=== PATIENT | male | born 2000 | race Caucasian/White ===

== ENCOUNTER 2021-01-28 16:32 | Emergency (ER) | payer OTHER, SELFPAY ==
[2021-01-28 16:46] VITALS: BP 107/76; PULSE 99; RESP 16; TEMP 36; O2SAT 99
--- NOTE | 2021-01-28 17:27 | ED.MALEGU ---
HPI - Male Genitourinary General Chief complaint: Urogenital-Male Stated complaint: uti Time Seen by Provider: 01/28/21 17:27 Source: patient, RN notes reviewed and old records reviewed Mode of arrival: ambulatory Limitations: no limitations History of Present Illness HPI Narrative: 20 year old male who presents to [facility] care with 4 day history of bilateral flank pain,burning with urination, urinary frequency and some visible hematuria. Patient denies any known history of previous kidney stones or urinary tract infections.He denies any penile discharge or any penile lesions or any concern for exposure to STD's. Patient states his bilateral flank pain as 3/10 describes pain as aching. He denies any known fevers, chills or sweats, no nausea vomiting or diarrhea. MD Complaint: dysuria Related Data Allergies Allergy/AdvReac Type Severity Reaction Status Date / Time pollen extracts Allergy Mild Verified 01/28/21 16:56 Dust Allergy Mild Uncoded 01/28/21 16:56 Review of Systems Review of Systems: CONSTITUTIONAL: Denies fever, chills, or sweats. EYES: Denies visual changes, redness, or discharge. ENT: Denies rhinorrhea, congestion, sore throat, or otalgia. CARDIOVASCULAR: Denies chest pain, palpitations, or edema. RESPIRATORY: Denies cough or dyspnea. GASTROINTESTINAL: Denies abdominal pain, nausea, vomiting, or diarrhea. GENITOURINARY: Positive dysuria or hematuria. SKIN: Denies rash or itching. MUSCULOSKELETAL: Denies back pain, joint pain, or myalgia.bilateral CVA tenderness reported. NEUROLOGIC: Denies headache, numbness, or weakness. PSYCHIATRIC: Denies anxiety or depression. All systems reviewed & are unremarkable except as noted in HPI and below PMFSH Past Medical History Medical History (Updated 02/03/21 @ 22:28 by Lucero Victoria NP) Asthma Facial fracture Fracture of left forearm Fracture of right lower extremity Fracture of right upper extremity Fracture of right wrist Heel fracture left Surgical History Surgical History (Updated 02/03/21 @ 22:29 by Lucero Victoria NP) History of placement of ear tubes S/P excision of varicocele Family History Family History (Updated 02/03/21 @ 22:32 by Lucero Victoria NP) Father Hypertension Social History Social History (Updated 09/17/21 @ 22:29 by Lucero Victoria NP) Tobacco type: e-cigarettes/vaping Alcohol intake: current Alcohol use details: social Substance use: never Living arrangements: with family Gender identity (if verbalized by the patient): Male Comments At time of signature, agree with nursing past medical, surgical, social and family history. There is no relevant family history pertinent to the presenting complaint Exam Narrative: GENERAL: Well-appearing, well-nourished, and in no acute distress. HEAD: Normocephalic, atraumatic. EYES: PERRLA and EOMI. ENT: Nares clear, no rhinorrhea or epistaxis. Mucous membranes moist.TM's normal, throat pink with no lesions or exudates, no tonsil swelling. NECK: Supple. No lymphadenopathy CHEST: Clear to auscultation. No respiratory distress. SaO2 99% on room air HEART: Regular rate and rhythm. No murmur heard. Normal peripheral pulses. ABDOMEN: Soft, nontender to palpation nondistended, normal active bowel sounds. positive for bilateral CVA tenderness EXTREMITIES: Normal range of motion. No edema. SKIN: Warm, dry, no rash. NEURO: No focal deficits. Alert and oriented x3. Course Vital Signs Vital signs: Vital Signs Temperature 36.0 C L 01/28/21 16:46 Pulse Rate 99 01/28/21 16:46 Respiratory Rate 16 01/28/21 16:46 Blood Pressure 107/76 01/28/21 16:46 Pulse Oximetry 99 01/28/21 16:46 Temperature 36.0 C L 01/28/21 16:46 Pulse Rate 99 01/28/21 16:46 Respiratory Rate 16 01/28/21 16:46 Blood Pressure 107/76 01/28/21 16:46 Pulse Oximetry 99 01/28/21 16:46 MDM - Male Genitourinary MDM Narrative Medical decision making narrative: Patient in
--- NOTE | 2021-01-28 18:12 | PC.NURSE ---
[facility] closed, called into [facility] - spoke with
== END 2021-01-28 17:48 | disposition home or self-care (01) ==
PROVIDERS: Emergency Provider Registered Nurse
DX: N39.0 Urinary tract infection, site not specified (principal); F17.290 Nicotine dependence, other tobacco product, uncomplicated
CPT/HCPCS: 81003; 87086; 99213; G0463

== ENCOUNTER 2021-02-21 08:27 | Outpatient (CLI) | payer OTHER, SELFPAY ==
--- NOTE | ~2021-02-21 | MR_ITS ---
EXAMINATION: MR knee LT wo con DATE: 02/21/2021 10:06 INDICATION: Left knee pain and stiffness post injury one month prior TECHNIQUE: Magnetic resonance imaging (MRI) of the left knee was performed without intravenous contra st. Sequences included coronal PD-weighted FSE, coronal PD-weighted FS FSE, sagittal T2-weighted FSE , sagittal PD-weighted FS FSE and axial PD weighted fat saturated FSE. COMPARISON: None. FINDINGS: Medial compartment: Medial meniscus is normal. Articular cartilage is normal. Lateral compartment: Lateral meniscus is normal. Articular cartilage is normal. Patellofemoral compartment: Articular cartilage is normal. Ligaments and tendons: Anterior and posterior cruciate ligaments are normal. The medial collateral ligament and fibular nida ateral ligament complex are normal. The extensor mechanism is normal. The visualized medial and later al hamstring tendons as well as the iliotibial band are normal. Fluid: Physiologic amount of fluid in the joint space. No loose osteochondral bodies identified. Osseous/other: Normal marrow signal. No fracture or pathologic marrow replacing process. IMPRESSION: 1. Normal left knee MRI. Reviewed, dictated and finalized at location B. IMPRESSION: 1. Normal left knee MRI.
== END 2021-02-21 08:28 | disposition home or self-care (01) ==
PROVIDERS: PCP Nurse Practitioner Family; Visit Provider Nurse Practitioner Family
DX: M25.562 Pain in left knee (principal); G89.29 Other chronic pain; S89.92XA Unspecified injury of left lower leg, initial encounter; X58.XXXA Exposure to other specified factors, initial encounter
CPT/HCPCS: 73721

== ENCOUNTER 2022-04-18 06:18 | Emergency (ER) | payer OTHER, SELFPAY ==
--- NOTE | ~2022-04-18 | XR_ITS ---
EXAMINATION: XR chest 1V portable DATE: 04/18/2022 07:41 INDICATION: Cough. TECHNIQUE: A single frontal view of the chest was obtained. COMPARISON: Chest 2 views 06/14/2014 FINDINGS: The chest demonstrates clear lungs without pneumonia, pleural effusion, or pneumothorax. Th e heart size is normal. IMPRESSION: 1. No acute cardiopulmonary disease. Reviewed, dictated and finalized at location A. [facility] [employer]
[2022-04-18 06:27] VITALS: BP 125/68; PULSE 110; RESP 20; TEMP 37.7; O2SAT 98
--- NOTE | 2022-04-18 07:27 | ED.GENADULT ---
HPI - General Adult General Chief complaint: Upper Respiratory Infection Stated complaint: Cough, Fatigue Time Seen by Provider: 04/18/22 07:22 Source: patient and family History of Present Illness HPI narrative: Patient complaining of productive cough for 1 week, over the last 24 hours had new symptoms of sore throat, body aches, weakness and fatigue. Patient reports a history of pneumonia and it does feel like pneumonia. Related Data Allergies Allergy/AdvReac Type Severity Reaction Status Date / Time pollen extracts Allergy Mild Unknown Verified 04/18/22 06:30 Dust Allergy Mild Unknown Uncoded 04/18/22 06:30 Review of Systems Review of Systems: All systems reviewed & are unremarkable except as noted in HPI and below PMFSH Past Medical History Medical History Asthma Facial fracture Fracture of left forearm Fracture of right lower extremity Fracture of right upper extremity Fracture of right wrist Heel fracture left Surgical History Surgical History History of placement of ear tubes S/P excision of varicocele Family History Family History Father Hypertension Social History Social History Tobacco type: e-cigarettes/vaping Alcohol intake: current Alcohol use details: social Substance use: never Gender identity (if verbalized by the patient): Male Exam Narrative: General appearance: Well-developed, well-nourished Skin: Normal color Head: Normocephalic, nontraumatic Eyes: Clear conjunctiva ENT: Oropharynx normal, ears normal, nose normal Neck: Supple, nontender Chest and respiratory: Airway patent, no respiratory distress, no accessory muscle use Heart: Regular rate/rhythm Abdomen: Soft, nontender, no organomegaly, quiet bowel sounds Vascular: Normal peripheral pulses, normal capillary refill. Musculoskeletal: Normal range of motion, nontender back Neurologic: Alert and oriented ?3, WO[employer] is normal as tested, no gross motor deficit Course Vital Signs Vital signs: Vital Signs Temperature 37.7 C H 04/18/22 06:27 Pulse Rate 110 H 04/18/22 06:27 Respiratory Rate 20 04/18/22 06:27 Blood Pressure 125/68 04/18/22 06:27 Pulse Oximetry 98 04/18/22 06:27 Oxygen Delivery Room Air 04/18/22 06:27 Temperature 37.7 C H 04/18/22 06:27 Pulse Rate 110 H 04/18/22 06:27 Respiratory Rate 20 04/18/22 06:27 Blood Pressure 125/68 04/18/22 06:27 Pulse Oximetry 98 04/18/22 06:27 Oxygen Delivery Room Air 04/18/22 06:27 Medical Decision Making MDM Narrative Medical decision making narrative: Viral infection Vital Signs Vital Signs: Vital Signs Temperature 37.7 C H 04/18/22 06:27 Pulse Rate 110 H 04/18/22 06:27 Respiratory Rate 20 04/18/22 06:27 Blood Pressure 125/68 04/18/22 06:27 Pulse Oximetry 98 04/18/22 06:27 Oxygen Delivery Room Air 04/18/22 06:27 Temperature 37.7 C H 04/18/22 06:27 Pulse Rate 110 H 04/18/22 06:27 Respiratory Rate 20 04/18/22 06:27 Blood Pressure 125/68 04/18/22 06:27 Pulse Oximetry 98 04/18/22 06:27 Oxygen Delivery Room Air 04/18/22 06:27 Lab Data Labs: Lab Results 04/18/22 Range/Units 06:48 Influenza A (RT-PCR) Pending Influenza B (RT-PCR) Pending RSV (RT-PCR) Pending SARS-CoV-2 RNA (RT-PCR) Pending Critical Care Time Critical Care Time Critical Care Time: No Discharge Plan Discharge Clinical Impression: Influenza Patient Disposition: Home, Self-Care Condition: Stable
[2022-04-18 07:31] LABS: Influenza A QL RT-PCR Positive (Negative); Influenza B QL RT-PCR Negative (Negative); RSV RNA, RT-PCR Negative (Negative); SARS-CoV-2 RNA PCR Negative
[2022-04-18] MEDS: ACETAMINOPHEN 325 MG TABLET 650 MG PO (07:36)
[2022-04-18] MEDS: IBUPROFEN 600 MG TABLET PO (07:36)
[2022-04-18 08:25] VITALS: BP 103/66; PULSE 90; RESP 16; O2SAT 97
== END 2022-04-18 08:25 | disposition home or self-care (01) ==
PROVIDERS: Emergency Provider Emergency Medicine; PCP Nurse Practitioner Family
DX: J10.1 Influenza due to other identified influenza virus with other respiratory manifestations (principal); Z20.822 Contact with and (suspected) exposure to COVID-19; J45.909 Unspecified asthma, uncomplicated
CPT/HCPCS: 71045; 87637; 99283; A9270